=== PATIENT | male | born 1995 | race Two or more races ===

== ENCOUNTER 2024-04-21 15:40 | Emergency (ER) | payer SELFPAY ==
[~2024-04-21] VITALS: Ht 165.1 cm; Wt 105.5 kg
[2024-04-21 15:53] VITALS: BP 134/88; PULSE 101; RESP 18; O2SAT 99
[2024-04-21] MEDS ORDERED: IBUP-1455 PO (16:15)
[2024-04-21] MEDS ORDERED: NEOMSUS11 RIGHTEYE (16:15)
--- NOTE | 2024-04-21 16:15 | ED.PDOC ---
Eye-HPI HPI Comments This patient is a 28-year-old Yoruba-speaking only male who arrives to the ED today for evaluation of right eye concerns. Patient states that yesterday he was grinding when a piece of metal went into his eye. Patient states he feels a entrapped foreign body as well as abrasion concerns. Patient denies any change in vision. No fever nausea or vomiting. Vital signs were stable on arrival. Chief Complaint: Eye Problem Time Seen by MD: 15:50 Reviewed Notes: Nurses Notes Allergies: Coded Allergies: No Known Drug Allergy (Verified Allergy, Unknown, 04/21/24) Information Source: Patient Mode of Arrival: Ambulatory Timing: Days Duration: Since onset Prehospital treatment: None Quality: Pain, Red, FB sensation Eye Location: Right Conjunctiva: Injection, Foreign Body Onset: FB Exposure Past Medical History PAST MEDICAL HISTORY: Denies Surgical History: Denies all surgeries Family History Family History: Reviewed,noncontributory to illness, No family hx of Cancer, No family hx of DM, No family hx of Heart nesha, No family hx of HTN, No family hx ofKidney nesha, No family hx of Liver nesha, No family hx of Lung nesha, No family hx of Stroke Social History Smoker: Non-Smoker Alcohol: Denies ETOH Use Drugs: Denies Drug Use Lives In: Home Constitutional: denies: chills, diaphoresis, fatigue, fever, malaise, sweats, weakness, others EENTM: reports: eye pain, eye redness; denies: blurred vision, double vision, ear bleeding, ear discharge, ear drainage, ear pain, ear ringing, hearing loss, mouth pain, mouth swelling, nasal discharge, nose bleeding, nose congestion, nose pain, photophobia, tearing, throat pain, throat swelling, voice changes, others Respiratory: denies: cough, hemoptysis, orthopnea, SOB at rest, shortness of breath, SOB with excertion, stridor, wheezing, others Cardiovascular: denies: chest pain, dizzy spells, diaphoresis, Dyspnea on exertion, edema, irregular heart beat, left arm pain, lightheadedness, palpitations, PND, syncope, others Gastrointestinal: denies: abdomen distended, abdominal pain, blood streaked bowels, constipated, diarrhea, dysphagia, difficulty swallowing, hematemesis, melena, nausea, poor appetite, poor fluid intake, rectal bleeding, rectal pain, vomiting, others Genitourinary: denies: burning, dysuria, flank pain, frequency, hematuria, incontinence, penile discharge, penile sore, pain, testicle pain, testicle swelling, urgency, others Neurological: denies: dizziness, fainting, headache, left sided numbness, left sided weakness, numbness, paresthesia, pre-existing deficit, right sided numbness, right sided weakness, seizure, speech problems, tingling, tremors, weakness, others Musculoskeletal: denies: back pain, gout, joint pain, joint swelling, muscle pain, muscle stiffness, neck pain, others Integumetry: denies: bruises, change in color, change in hair/nails, dryness, laceration, lesions, lumps, rash, wounds, others Allergic/Immunocompromised: denies: Difficulty Healing, Frequent Infections, Hives, Itching, others Hematologic/Lymphatic: denies: anemia, blood clots, easy bleeding, easy bruising, swollen glands, others Endocrine: denies: excessive hunger, excessive sweating, excessive thirst, excessive urination, flushing, intolerance to cold, intolerance to heat, unexplained weight gain, unexplained weight loss, others Psychiatric: denies: anxiety, bipolar disorder, depression, hopeless, panic disorder, schizophrenia, sleepless, suicidal, others Physical Exam General Appearance: Mild Distress (Moderate distress due to right eye foreign body and pain concerns.), Normal HEENT: Pharynx Normal, TMs Normal, Other (Patient displays an entrapped foreign body at the 1 o'clock position of the lateral aspect of the iris. Additionally, patient displays some corneal abrasion to the superior aspect of the eye. No Gino sign.) Neck: Full Range of Motion, Non-Tender, Normal, Normal Inspection Respiratory: Chest Non-Tender, Lungs Clear, No Accessory Muscle Use, No Respiratory Distress, Normal Breath Sounds Cardiovascular: No Edema, No JVD, No Murmur, No Gallop, Normal Peripheral Pulses, Regular Rate/Rhythm Breast Exam: Deferred Gastrointestinal: No Organomegaly, Non Tender, No Pulsatile Mass, Normal Bowel Sounds, Soft Genitalia: Deferred Pelvic: Deferred Rectal: Deferred Extremities: No calf tenderness, Normal capillary refill, Normal inspection, Normal range of motion, Non-tender, No pedal edema Neurologic: Alert, No Motor Deficits, Normal Affect, Normal Mood, No Sensory Deficits Cerebellar Function: Normal Reflexes: Normal Skin: Dry, Normal Color, Warm Lymphatic: No Adenopathy Was a procedure done? Was a procedure done?: Yes Sedation Sedation?: No Other Procedure Notes Tetracaine was utilized for right eye anesthesia. Fluorescein stain was utilized to confirmed the entrapped foreign body and corneal abrasion. I at tempted with a 18 gauge needle to extricate the entrapped small foreign body, but patient was noncompliant with consistent eye movement and blinking. Advised patient utilize I antibiotic drops and follow up with Ophthalmology tomorrow for definitive evaluation and foreign body removal. EENT DIFF Eye: Corneal Abrasion, Other (Foreign body) X-Ray, Labs, Meds, VS Vital Signs Date Time Temp Pulse Resp B/P (MAP) Pulse Ox O2 Delivery O2 Flow Rate FiO2 04/21/24 15:53 98.6 101 18 134/88 (103) 99 X-Ray, Labs, Meds, VS Comment Patient has a very small entrapped foreign body as well as a corneal abrasion. Patient will be given antibiotic eyedrops and advised to follow up with Ophthalmology tomorrow for definitive evaluation and removal of entrapped foreign body. Time of 1ST Reevaluation: 16:09 Reevaluation 1ST: Unchanged Consultation: PCP, Other (Ophthalmology) Patient Education/Counseling: Diagnosis, Treatment Family Education/Counseling: Diagnosis, Treatment Departure 1 Departure Time of Disposition: 16:09 Impression: Primary Impression: Foreign body of right eye Additional Impression: Corneal abrasion, right Disposition: 01 HOME / SELF CARE / HOMELESS Condition: Stable Additional Instructions: Advised patient utilize antibiotic eyedrops as directed and additionally, follow up with Ophthalmology tomorrow for definitive evaluation. Advised patient that if he can not secure an [facility] who his primary care provider, he can go to a [facility] facility such as [facility] who staff ophthalmology providers. e-Prescriptions Ibuprofen Micronized (Ibuprofen) 800 Mg Tab 800 MG PO Q8HP PRN, #20 TAB Prov: PIPER RICHARD PAC 04/21/24 [id number]-[id number] (Ophth) (Neomycin/Polymyxin/Hydroc) Op Regina 2 DROP RIGHTEYE TID, #2.5 ML Prov: PIPER RICHARD PAC 04/21/24 Discharged With: Self, Friend Critical Care Note Critical Care Time?: No Stability Stability form required: No Heart Score Heart Score: Heart Score Response (Comments) Value History N/A 0 EKG N/A 0 Age N/A 0 Risk Factors N/A 0 Troponin N/A 0 Total 0 PIPER RICHARD [facility] Apr 21, 2024 16:15
== END 2024-04-21 17:11 | disposition home or self-care (01) ==
LOC: ER 15:40
DX: S05.01XA Injury of conjunctiva and corneal abrasion without foreign body, right eye, initial encounter (principal); T15.91XA Foreign body on external eye, part unspecified, right eye, initial encounter; X58.XXXA Exposure to other specified factors, initial encounter; Y93.89 Activity, other specified; Y92.89 Other specified places as the place of occurrence of the external cause; Y99.8 Other external cause status
CPT/HCPCS: 65205